=== PATIENT | female | born 1970 | race Caucasian/White ===

== ENCOUNTER 2016-09-21 20:16 | Emergency (ER) | payer BC ==
[~2016-09-21] VITALS: Ht 165.1 cm; Wt 112.5 kg
--- NOTE | ~2016-09-21 | CT4 ---
[facility] A Service [facility] RADIOLOGY TEXT RESULTS PATIENT: SHERRILL TURNER LOCATION: SED : 74 UNIT #: [id number] AGE: [address]: BERNY TINOCO SEX: F ORDER DR: [id number] [place] [id number] MR#: [id number] Acc #: [id number] NAME: SHERRILL TURNER : 1970 SEX: F STUDY DATE/TIME: 09/21/2016 21:32 UNIT: SED ROOM: STUDY DESCRIPTION: CT Abd and Pelv Wo Cont Attending Physician: Berny Tinoco Ordering Physician: Berny Tinoco Primary Care Physician: Masood Cadena M.D. MEDICAL IMAGING REPORT This report is preliminary unless electronic signature is present. EXAM CT abdomen and pelvis without contrast HISTORY Right sided abdomen pain for 1 week. Fever and chills. The CT exam was performed with one or more of the following radiation dose reduction techniques: automatic exposure control, adjustment of mA and/or kV according to patient size, and iterative reconstruction. FINDINGS CT abdomen and pelvis was performed without contrast CT ABDOMEN Diffuse fatty infiltration of the liver. The gallbladder is partly contracted. No biliary dilatation. No hepatic mass. The spleen, pancreas, kidneys, and adrenal glands are normal. Normal caliber abdominal aorta. CT Pelvis Normal appendix. No free fluid. The uterus and adnexa are unremarkable. No bowel dilatation or wall thickening. IMPRESSION 1. No acute findings in the abdomen or pelvis. 2. Diffuse fatty infiltration of the liver. 3. No urinary calculi or obstruction. 4. Normal appendix. Dictated by... [facility] A [facility] RADIOLOGY TEXT RESULTS PATIENT: SHERRILL TURNER LOCATION: SED : 74 UNIT #: [id number] AGE: [address]: BERNY TINOCO SEX: F ORDER DR: Darrius Cook M.D. THIS IS AN ELECTRONICALLY VERIFIED REPORT Darrius Cook M.D. at 09/22/2016 2:39 PM MITUL/[place] TD: 09/22/2016 11:26 JOB #: [id number] MEDICAL IMAGING REPORT Page 1 of 1
[~2016-09-21 20:16] MED LIST: BENADRYL25 M3 PO; NO MEDICATIONS; PREDNISONE PO; PRILOSEC; VOLTAREN50 MG PO; ZANTAC
[2016-09-21] MEDS ORDERED: CELEXA10 MG PO (20:32)
[2016-09-21 21:00] LABS: URINE SOURCE CLEAN CATCH
[2016-09-21 21:02] LABS: MICRO INDICATED? YES; URINE APPEARANCE HAZY; URINE BILIRUBIN NEG (NEG); URINE BLOOD NEG (NEG); URINE COLOR YELLOW; URINE GLUCOSE NEG (NORM); URINE KETONE NEG (NEG); URINE LEUKOCYTE ESTERASE 3+ (NEG); URINE NITRATE NEG (NEG); URINE PROTEIN NEG (NEG)
[2016-09-21 21:06] LABS: URINE RBC 0-2 /[HPF] (0-2)
[2016-09-21 21:07] LABS: CULTURE INDICATED? YES; URINE BACTERIA 2+ (NEG); URINE MUCUS PRESENT; URINE SQUAMOUS EPITHELIAL CELL OCCAS /[HPF]; URINE TRANSITIONAL EPI CELLS FEW /[HPF]
[2016-09-21 22:04] LABS: BASOPHIL% 0.6 % (0-2.5); DIFF IND NO; EOSINOPHIL# 0.2 X10e3 (0-0.7); EOSINOPHIL% 2.5 % (0.0-7.0); HEMOGLOBIN 13.5 gm/dL (12.0-16.0); LYMPHOCYTE# 2.5 X10e3 (1.0-3.5); LYMPHOCYTE% 33.1 % (17.0-45.0); MEAN CELL VOLUME 86.6 FL (83-96); MEAN CORPUSCULAR HGB CONC 34.7 g/dL (30-36); MONOCYTE# 0.7 X10e3 (0-1.0); MONOCYTE% 8.6 % (3.0-12.0); NEUTROPHIL# 4.2 X10e3 (1.5-7.1); NEUTROPHIL% 55.2 % (40-75); PLATELET COUNT 184 X10e3 (140-420); RED BLOOD COUNT 4.51 X10e (3.90-5.30); RED CELL DISTRIBUTION WIDTH 13.4 % (11.0-15.5); WHITE BLOOD COUNT 7.6 X10e3 (4.0-10.5)
[2016-09-21 22:18] LABS: ALBUMIN SERUM 3.8 g/dL (3.5-5.0); BILIRUBIN,TOTAL 0.3 mg/dL (0.2-2.0); BUN/CREATININE RATIO 18.33; CALCIUM SERUM 8.9 mg/dL (8.4-10.2); CREATININE SERUM 0.6 mg/dL (0.6-1.4); GLOM FILT RATE Estimated 111.6 mL/min (>60); POTASSIUM 3.5 mmol/L (3.5-5.1); PROTEIN TOTAL SERUM 7.1 g/dL (6.0-8.3)
== END 2016-09-22 00:31 | disposition home or self-care (01) ==
LOC: SED 20:16
PROVIDERS: Emergency Medicine; Nurse Practitioner
DX: N39.0 Urinary tract infection, site not specified (principal); K21.9 Gastro-esophageal reflux disease without esophagitis; F41.9 Anxiety disorder, unspecified; Z88.0 Allergy status to penicillin; Z79.899 Other long term (current) drug therapy
CPT/HCPCS: 36415; 74176; 80053; 81003; 85025; 87086; 96374; 96375; 96376; 99284; J1885; J2405